=== PATIENT | male | born 1960 | race Caucasian/White ===

== ENCOUNTER 2018-12-17 12:19 | Inpatient (IN) | payer MEDICAID ==
[2018-12-17] MEDS ORDERED: Lactated Ringer 1,000 ML IV ONE (12:59)
[2018-12-17 13:20] LABS: % BASOPHILS 0.3 % (0.0-2.0); % EOSINOPHILS 1.3 % (0.0-5.0); % LYMPHOCYTES 15.6 % (20.0-50.0); % MONOCYTES 3.6 % (2.0-10.0); % NEUTROPHILS 79.2 % (40.0-80.0); EOSINOPHILE ABSOLUTE 0.1 Th/cmm (0.1-0.4); HEMATOCRIT 45.2 % (41.0-60); HEMOGLOBIN 15.4 gm/dL (12-16); LYMPHOCYTE ABSOLUTE 1.5 Th/cmm (1.5-3.0); MEAN CORPUSCULAR HEMOGLOBIN 29.7 pg (26.0-30.0); MEAN CORPUSCULAR HGB CONC 34.2 pg (28.0-36.0); MEAN PLATELET VOLUME 9.4 fl; MONOCYTE ABSOLUTE 0.3 Th/cmm (0.3-1.0); NEUTROPHILE ABSOLUTE 7.6 Th/cmm (1.8-8.0); PLATELET COUNT 197 Th/cmm (150-400); RED BLOOD COUNT 5.19 Mil/cmm (4.30-5.70); RED CELL DISTRIBUTION WIDTH 13.2 % (11.5-20.0); WHITE BLOOD COUNT 9.5 Th/cmm (4.8-10.8)
[2018-12-17 13:34] LABS: ALB/GLOB RATIO 1.2 (1.0-1.8); ALBUMIN 3.9 gm/dL (4.2-5.5); ALKALINE PHOSPHATASE 73 U/L (34-104); ANION GAP 12.3 (7.0-16.0); BILIRUBIN,TOTAL 0.5 mg/dL (0.3-1.0); BUN - UREA NITROGEN 13 mg/dL (7-25); CALCIUM SERUM 9.3 mg/dL (8.6-10.3); CARBON DIOXIDE 23.5 mEq/L (21.0-31.0); CHLORIDE 105 mEq/L (98-107); GFR AFRICAN-AMERICAN > 60.0 ml/min (>90); GFR NON AFRICAN-AMERICAN > 60.0 ml/min; GLUCOSE 151 mg/dL (70-105); MAGNESIUM 2.1 mg/dL (1.9-2.7); POTASSIUM SERUM 3.8 mEq/L (3.5-5.1); SGOT 17 U/L (13-39); SGPT/ALT 27 U/L (7-52); SODIUM SERUM 137 mEq/L (136-145); TOTAL PROTEIN,SERUM 7.2 gm/dL (6.0-8.3)
[2018-12-17 13:54] LABS: DDIMER QUANT 187 ng/mL (100-400)
[2018-12-17] MEDS ORDERED: Sodium Phos / Potassium Phos 1.25 GM PACK PO ONE (13:54)
--- NOTE | 2018-12-17 14:13 | ED Physician Chart ---
ED Chief Complaint/HPI - Patient Information Date Seen:: 12/17/18 Time Seen:: 12:27 Chief Complaint:: LLE pain History of Present Illness:: LLE pain without h/o trauma. Being treated for a pneumonia right now on levaquin. Allergies:: Allergies Allergy/AdvReac Type Severity Reaction Status Date / Time No Known Allergies Allergy Verified 12/17/18 12:26 Vitals:: Vital Signs - 8 hr 12/17/18 12:27 Temp 98.0 F HR 87 RR 21 BP 156/90 O2 Sat % 97 Historian:: Patient, Friend Review:: Nurse's Note Reviewed ED Review of Systems - Review of Systems General/Constitutional: No fever, No chills, No weight loss, No weakness, No diaphoresis, No edema, No loss of appetite Skin: No skin lesions, No rash, No bruising, Other (red and warm LLE) Head: No headache, No light-headedness Eyes: No loss of vision, No pain, No diplopia ENT: No earache, No nasal drainage, No sore throat, No tinnitus Neck: No neck pain, No swelling, No thyromegaly, No stiffness, No mass noted Cardio Vascular: No chest pain, No palpitations, No PND, No orthopnea, No edema Pulmonary: No SOB, No cough, No sputum, No wheezing GI: No nausea, No vomiting, No diarrhea, No pain, No melena, No hematochezia, No constipation, No hematemesis G/U: No dysuria, No frequency, No hematuria Musculoskeletal: No bone or joint pain, No back pain, No muscle pain, Other ( negative Jenn's) Endocrine: No polyuria, No polydipsia Psychiatric: No prior psych history, No depression, No anxiety, No suicidal ideation Hematopoietic: No bruising, No lymphadenopathy Allergic/Immuno: No urticaria, No angioedema Neurological: No syncope, No focal symptoms, No weakness, No paresthesia, No headache, No seizure, No dizziness, No confusion, No vertigo ED Past Medical History - Past Medical History Obtainable: Yes Past Medical History: Other (pre-diabetes; on Levaquin for pneumonia) Family Medical History - Family Member Mother History Unknown: Yes ED Physical Exam - Physical Examination General/Constitutional: Awake, Alert, No distress, GCS 15, Non-toxic appearing, Ambulatory Other Gen/Cons comments:: overweight Head: Atraumatic Eyes: Lids, conjuctiva normal, PERRL Other Skin comments:: dry oral mucosa red, hot and warm LLE in the left pretibial region consistent with cellulitis. NV intact. Negative Jenn's sign. Negative for compartment syndrome. ENMT: External ears, nose nl Neck: Nontender, No nuchal rigidity, No stridor Respiratory: Nl effort/Exclusion, Clear to Auscultation, No Wheeze/Rhonchi/Rales Cardio Vascular: RRR, No murmur, gallop, rubs, NL S1 S2 GI: No tenderness/rebounding/guarding, No organomegaly, No hernia, Normal BS's, Nondistended, No mass/bruits, No McBurney tenderness : No CVA tenderness Extremities: No tenderness or effusion, Full ROM, No edema, Normal digits & nails Neuro/Psych: Alert/oriented, DTR's symmetric, Normal sensory exam, Normal motor strength, Judgement/insight normal, Mood normal, Normal gait, No focal deficits Misc: Normal back, No paraspinal tenderness ED Labs/Radiology/EKG Results - Lab Results Results: Laboratory Tests 12/17/18 12/17/18 12/17/18 12:57 13:05 13:05 WBC 9.5 RBC 5.19 Hgb 15.4 Hct 45.2 MCV 87.0 MCH 29.7 MCHC Differential 34.2 RDW 13.2 Plt Count 197 MPV 9.4 Neutrophils % 79.2 Lymphocytes % 15.6 L Monocytes % 3.6 Eosinophils % 1.3 Basophils % 0.3 D-Dimer 187 Sodium 137 Potassium 3.8 Chloride 105 Carbon Dioxide 23.5 Anion Gap 12.3 BUN 13 Creatinine 1.0 Est GFR ( Amer) > 60.0 Est GFR (Non-Af Amer) > 60.0 BUN/Creatinine Ratio 13.0 Glucose 151 H POC Glucose 151 H Whole Bld Lactic Acid Calcium 9.3 Phosphorus 2.0 L Magnesium 2.1 Total Bilirubin 0.5 AST 17 ALT 27 Alkaline Phosphatase 73 Total Protein 7.2 Albumin 3.9 L Globulin 3.3 Albumin/Globulin Ratio 1.2 12/17/18 13:05 WBC RBC Hgb Hct MCV MCH MCHC Differential RDW Plt Count MPV Neutrophils % Lymphocytes % Monocytes % Eosinophils % Basophils % D-Dimer Sodium Potassium Chloride Carbon Dioxide Anion Gap BUN Creatinine Est GFR ( Amer) Est GFR (Non-Af Amer) BUN/Creatinine Ratio Glucose POC Glucose Whole Bld Lactic Acid 0.92 Calcium Phosphorus Magnesium Total Bilirubin AST ALT Alkaline Phosphatase Total Protein Albumin Globulin Albumin/Globulin Ratio ED Assessment - Assessment General Assessment: presented case to Dr. Avila at 14:12 p.m. Patient will be admitted to a med/surg bed. ED Septic Shock - . Is Septic Shock (SBP<90, OR Lactate>4 mmol\L) present?: No - <6hrs of presentation: Vital Signs: Vital Signs - 8 hr 12/17/18 12:27 Temp 98.0 F HR 87 RR 21 BP 156/90 O2 Sat % 97 ED Reassessment (Disposition) - Reassessment Reassessment Condition:: Unchanged - Diagnosis Diagnosis:: LLE Cellulitis Prediabetes. Low phosphorous. - Patient Disposition Discharge/Transfer:: Acute Care w/in this hosp Admitted to:: Med/Surg Condition at Disposition:: Stable, Unchanged
[2018-12-17] MEDS ORDERED: Pneumococcal Vaccine 0.5 mL Vial IM ONE (16:14)
[2018-12-17] MEDS ORDERED: Hydrocodone/APAP 5mg/325mg Tab PO PRN (16:21)
[2018-12-17 16:48] LABS: URINE SOURCE CLEAN C
[2018-12-17 16:50] LABS: URINE BILIRUBIN NEGATIVE (NEGATIVE); URINE BLOOD TRACE (NEGATIVE); URINE GLUCOSE (UA) NEGATIVE (NEGATIVE); URINE KETONE NEGATIVE (NEGATIVE); URINE LEUKOCYTE ESTERASE NEGATIVE (NEGATIVE); URINE MICROSCOPIC INDICATED? YES; URINE NITRATE POSITIVE (NEGATIVE); URINE PROTEIN TRACE mg/dL (NEGATIVE); URINE UROBILINOGEN 0.2 E.U./dL (0.2 - 1.0)
[2018-12-17] MEDS ORDERED: Vancomycin HCl 1.75 GM in Sodium Chloride 0.9% 500 ML IV ONE ×2 (17:00→21:00)
[2018-12-17 17:02] LABS: URINE CLARITY HAZY (CLEAR); URINE COLOR YELLOW
[2018-12-17 17:03] LABS: URINE BACTERIA FEW /hpf (NONE SEEN); URINE EPITHELIAL CELLS NONE SEEN /lpf (FEW); URINE RBC 0-2 /hpf (0-5)
[2018-12-17] MEDS: Enoxaparin 40 mg/0.4 mL 0.4mL Syr SUBQ SCH (17:21)
[2018-12-17] MEDS ORDERED: Sodium Phos / Potassium Phos 1.25 GM PACK ONE (17:28)
[2018-12-17] MEDS: INSULIN ASPART SLIDING SCALE 100 UNITS/ML UNIT SUBQ SCH ×2 (17:29→21:11)
--- NOTE | 2018-12-17 20:59 | History & Physical ---
ADMIT DATE: 12/17/2018 CHIEF COMPLAINT: Redness, tenderness, swelling of the left lower extremity for a few days' duration. HISTORY OF PRESENT ILLNESS: The patient is a 58-year-old male with long history of diabetes mellitus, presented to the Emergency Room with pain, tenderness, redness of left lower extremity for a few days' duration. Initial workup significant for cellulitis of left lower extremity. No fever, no chills, no nausea, no vomiting. The patient admitted to medical floor, started on antibiotic, CCHO diet, sliding scale with regular insulin coverage. Lovenox 40 subq for DVT prophylaxis. PAST MEDICAL HISTORY: Diabetes mellitus. PAST SURGICAL HISTORY: No recent surgery. ALLERGIES: None. MEDICATIONS: Follow admission reconciliation. SOCIAL HISTORY: No smoking, no alcohol, no drugs. FAMILY HISTORY: Noncontributory. REVIEW OF SYSTEMS: RENAL SYSTEM: No history of chronic renal disorder. CARDIOVASCULAR SYSTEM: No coronary artery disease. ENDOCRINE SYSTEM: He has history of diabetes mellitus. GASTROINTESTINAL SYSTEM: No upper or lower gastrointestinal bleed. NEUROLOGICAL SYSTEM: Seizure disorder. SKELETOMUSCULAR SYSTEM: No muscular dystrophy. HEMATOLOGICAL SYSTEM: No bleeding tendency. RESPIRATORY SYSTEM: No asthma. GENITOURINARY: No dysuria or hematuria. PHYSICAL EXAMINATION: GENERAL: He is awake, alert, oriented. VITAL SIGNS: Temperature 98, heart rate 88, blood pressure 132/70. HEENT: Normocephalic. Pupils reacting to light and accommodation. Sclerae clear. NECK: Supple. Negative for lymphadenopathy, JVD or bruit. CHEST: Entry of air bilaterally normal. No rhonchi or wheezing. HEART: S1, S2 normal. No murmur or gallop rhythm. ABDOMEN: Soft, bowel sounds positive. EXTREMITIES: Significant for redness, tenderness of the left lower extremity. NEUROLOGIC: Awake, alert, oriented. No focal motor deficit. Cranial nerves 2-12 is intact. LABORATORY DATA: White blood cell 9.5, hemoglobin 15.4, hematocrit 45.2, platelets 197. Sodium 137, potassium 3.8, BUN 13, creatinine 1.0, glucose 151. ASSESSMENT: 1. Cellulitis of left lower extremity. 2. Diabetes mellitus. 3. Hypertension. 4. Obesity. PLAN: The patient admitted to the hospital under Dr. Avila's service. Start him on IV antibiotic, CCHO diet, sliding scale with regular insulin coverage, metformin 850 twice a day, aspirin 81 once a day, Lovenox 40 subq daily, vancomycin 1 gram IV, pharmacy to follow, lisinopril 10 mg once a day. The patient is a full code. A1c hemoglobin ordered for tomorrow. JOB# [id number]
[2018-12-18] MEDS ORDERED: Vancomycin HCl 1.75 GM in Sodium Chloride 0.9% 500 ML IV ONE
[2018-12-18] MEDS: INSULIN ASPART SLIDING SCALE 100 UNITS/ML UNIT SUBQ SCH ×4 (06:51→20:41)
[2018-12-18 06:58] LABS: ANION GAP 13.5 (7.0-16.0); BUN - UREA NITROGEN 12 mg/dL (7-25); CALCIUM SERUM 9.2 mg/dL (8.6-10.3); CARBON DIOXIDE 23.2 mEq/L (21.0-31.0); CHLORIDE 107 mEq/L (98-107); CREATININE - SERUM 0.9 mg/dL (0.7-1.3); GFR AFRICAN-AMERICAN > 60.0 ml/min (>90); GFR NON AFRICAN-AMERICAN > 60.0 ml/min; GLUCOSE 109 mg/dL (70-105); POTASSIUM SERUM 3.7 mEq/L (3.5-5.1); SODIUM SERUM 140 mEq/L (136-145)
--- NOTE | 2018-12-18 07:46 | Diagnostic Imaging Report ---
Portable chest x-ray Time: 1310 History: Pneumonia Allowing for portable technique the heart size is prominent. No focal pulmonary parenchymal processes. No hilar or mediastinal abnormalities. Impression: No acute abnormalities.
--- NOTE | 2018-12-18 07:57 | Diagnostic Imaging Report ---
Exam: Ultrasound examination of the venous circulation left lower extremity. HISTORY: Cellulitis. Findings: Real-time ultrasound examination of the deep venous circulation left lower extremity was performed multiple planes utilizing color Doppler technique. The study demonstrates normal compressibility and augmentation of deep venous system throughout. IMPRESSION: No evidence for deep venous thrombosis left lower extremity.
[2018-12-18] MEDS: Vancomycin HCl 1.5 GM in Sodium Chloride 0.9% 500 ML IV SCH ×3 (08:58→23:56)
[2018-12-18] MEDS: Aspirin 81mg Chewable Tab PO SCH (08:59)
[2018-12-18] MEDS: Enoxaparin 40 mg/0.4 mL 0.4mL Syr SUBQ SCH (09:00)
[2018-12-18] MEDS ORDERED: Vancomycin HCl 1.75 GM in Sodium Chloride 0.9% 500 ML IV SCH (09:00)
--- NOTE | 2018-12-18 17:39 | Internal Medicine Prog Note ---
Internal Medicine Subjective - Subjective Service Date: 12/18/18 Patient seen and examined:: without staff Patient is:: awake, in bed, talking Per staff patient has:: no adverse event Internal Medicine Objective - Results Result Diagrams: 12/17/18 13:05 12/18/18 05:00 Recent Labs: Laboratory Last Values WBC 9.5 Th/cmm (4.8-10.8) 12/17/18 13:05 RBC 5.19 Mil/cmm (4.30-5.70) 12/17/18 13:05 Hgb 15.4 gm/dL (12-16) 12/17/18 13:05 Hct 45.2 % (41.0-60) 12/17/18 13:05 MCV 87.0 fl (80-99) 12/17/18 13:05 MCH 29.7 pg (26.0-30.0) 12/17/18 13:05 MCHC Differential 34.2 pg (28.0-36.0) 12/17/18 13:05 RDW 13.2 % (11.5-20.0) 12/17/18 13:05 Plt Count 197 Th/cmm (150-400) 12/17/18 13:05 MPV 9.4 fl 12/17/18 13:05 Neutrophils % 79.2 % (40.0-80.0) 12/17/18 13:05 Lymphocytes % 15.6 % (20.0-50.0) L 12/17/18 13:05 Monocytes % 3.6 % (2.0-10.0) 12/17/18 13:05 Eosinophils % 1.3 % (0.0-5.0) 12/17/18 13:05 Basophils % 0.3 % (0.0-2.0) 12/17/18 13:05 D-Dimer 187 ng/mL (100-400) 12/17/18 13:05 Sodium 140 mEq/L (136-145) 12/18/18 05:00 Potassium 3.7 mEq/L (3.5-5.1) 12/18/18 05:00 Chloride 107 mEq/L (98-107) 12/18/18 05:00 Carbon Dioxide 23.2 mEq/L (21.0-31.0) 12/18/18 05:00 Anion Gap 13.5 (7.0-16.0) 12/18/18 05:00 BUN 12 mg/dL (7-25) 12/18/18 05:00 Creatinine 0.9 mg/dL (0.7-1.3) 12/18/18 05:00 Est GFR ( Amer) > 60.0 ml/min (>90) 12/18/18 05:00 Est GFR (Non-Af Amer) > 60.0 ml/min 12/18/18 05:00 BUN/Creatinine Ratio 13.3 12/18/18 05:00 Glucose 109 mg/dL (70-105) H 12/18/18 05:00 POC Glucose 147 MG/DL (70 - 105) H 12/18/18 16:53 Whole Bld Lactic Acid 0.92 mmol/L (0.60-1.99) 12/17/18 13:05 Calcium 9.2 mg/dL (8.6-10.3) 12/18/18 05:00 Phosphorus 2.0 mg/dL (2.5-5.0) L 12/17/18 13:05 Magnesium 2.1 mg/dL (1.9-2.7) 12/17/18 13:05 Total Bilirubin 0.5 mg/dL (0.3-1.0) 12/17/18 13:05 AST 17 U/L (13-39) 12/17/18 13:05 ALT 27 U/L (7-52) 12/17/18 13:05 Alkaline Phosphatase 73 U/L (34-104) 12/17/18 13:05 Total Protein 7.2 gm/dL (6.0-8.3) 12/17/18 13:05 Albumin 3.9 gm/dL (4.2-5.5) L 12/17/18 13:05 Globulin 3.3 gm/dL 12/17/18 13:05 Albumin/Globulin Ratio 1.2 (1.0-1.8) 12/17/18 13:05 Urine Source CLEAN C 12/17/18 14:30 Urine Color YELLOW 12/17/18 14:30 Urine Clarity HAZY (CLEAR) 12/17/18 14:30 Urine pH 6.0 (4.6 - 8.0) 12/17/18 14:30 Ur Specific [place] 1.025 (1.005-1.030) 12/17/18 14:30 Urine Protein TRACE mg/dL (NEGATIVE) 12/17/18 14:30 Urine Glucose (UA) NEGATIVE mg/dL (NEGATIVE) 12/17/18 14:30 Urine Ketones NEGATIVE mg/dL (NEGATIVE) 12/17/18 14:30 Urine Blood TRACE (NEGATIVE) 12/17/18 14:30 Urine Nitrate POSITIVE (NEGATIVE) H 12/17/18 14:30 Urine Bilirubin NEGATIVE (NEGATIVE) 12/17/18 14:30 Urine Urobilinogen 0.2 E.U./dL (0.2 - 1.0) 12/17/18 14:30 Ur Leukocyte Esterase NEGATIVE (NEGATIVE) 12/17/18 14:30 Urine RBC 0-2 /hpf (0-5) H 12/17/18 14:30 Urine WBC 6-10 /hpf (0-5) 12/17/18 14:30 Ur Epithelial Cells NONE SEEN /lpf (FEW) 12/17/18 14:30 Urine Bacteria FEW /hpf (NONE SEEN) 12/17/18 14:30 Vancomycin Trough 17.6 ug/mL (5-10) H 12/18/18 15:05 - Physical Exam Vitals and I&O: Vital Signs Temp 97.6 F 12/18/18 16:36 Pulse 75 12/18/18 16:43 Resp 18 12/18/18 16:36 BP 161/99 12/18/18 16:43 Pulse Ox 99 12/18/18 16:36 Intake & Output 12/17/18 12/18/18 12/18/18 18:59 06:59 18:59 Intake Total 500 900 500 Balance 500 900 500 Weight (lbs) 122.47 kg 122.47 kg Intake: Intake, IV Amount 500 Vancomycin HCl 1.5 gm In 500 Sodium Chloride 0.9% 500 ml @ 250 mls/hr IV Q8H [facility] Rx#:[id number] Oral 500 900 Other: # Voids 1 4 # Bowel Movements 0 Weight Source Bedscale Bedscale Active Medications: Current Medications Acetaminophen (Tylenol) 650 mg PO Q6H PRN PRN Reason: Pain or Fever >101 Stop: 02/15/19 14:29 Last Admin: 12/18/18 05:41 Dose: 650 mg Acetaminophen/Hydrocodone Bitart ([place] 5mg/325mg) 1 tab PO Q6H PRN PRN Reason: LEFT LOWER EXTREMITY PAIN Stop: 02/15/19 16:20 Amlodipine Besylate (Norvasc) 10 mg PO DAILY [facility] Stop: 02/17/19 16:13 Aspirin (Aspirin Chewable) 81 mg PO DAILY [facility] Stop: 02/16/19 08:59 Last Admin: 12/18/18 08:59 Dose: 81 mg Enoxaparin Sodium (Lovenox) 40 mg SUBQ DAILY [facility] Stop: 02/15/19 16:29 Last Admin: 12/18/18 09:00 Dose: 40 mg Vancomycin HCl 1.5 gm/ Sodium (Chloride) 500 mls @ 250 mls/hr IV Q8H [facility] Stop: 02/16/19 07:59 Last Admin: 12/18/18 16:42 Dose: 250 mls/hr Insulin Aspart (Novolog Insulin Sliding Scale) 0 units SUBQ ACHS [facility]; Protocol Stop: 02/15/19 16:29 Last Admin: 12/18/18 16:54 Dose: Not Given Lisinopril (Zestril) 20 mg PO BID [facility] Stop: 02/16/19 16:59 Last Admin: 12/18/18 16:43 Dose: 20 mg Metformin HCl (Glucophage) 850 mg PO BIDWM [facility] Stop: 02/16/19 07:59 Last Admin: 12/18/18 08:59 Dose: 850 mg Miscellaneous (Vancomycin Iv Per Pharmacy) 1 ea [facility] PRN PRN PRN Reason: PROTOCOL Stop: 02/15/19 14:20 Pneumococcal Polyvalent Vaccine (Pneumovax) 0.5 ml IM .ONCE ONE Stop: 12/17/18 16:15 General: alert HEENT: NC/AT, PERRLA, EOMI, anicteric sclerae, throat clear Neck: Supple, No JVD, No thyromegaly, +2 carotid pulse wo bruit Lungs: CTAB Cardiovascular: RRR, Normal S1, Normal S2, without murmur Abdomen: soft, non-tender, non-distended Extremities: other (LESS REDNESS OF LEFT LOWER EXTREMETY.) Neurological: no change Internal Medicine Assmt/Plan - Assessment Assessment: 1.CELLULITIS OF LEFT LOWER EXTREMITY. 2.DM. 3.HTN. 4.OBESITY. - Plan Plan: CONTINUE ON CURRENT MEDICATION AND DIET.
[2018-12-19 06:48] LABS: % BASOPHILS 0.6 % (0.0-2.0); % EOSINOPHILS 3.3 % (0.0-5.0); % LYMPHOCYTES 17.2 % (20.0-50.0); % MONOCYTES 5.4 % (2.0-10.0); % NEUTROPHILS 73.5 % (40.0-80.0); BASOPHILE ABSOLUTE 0.1 Th/cumm (0-0.2); EOSINOPHILE ABSOLUTE 0.4 Th/cmm (0.1-0.4); HEMATOCRIT 44.2 % (41.0-60); HEMOGLOBIN 15.2 gm/dL (12-16); LYMPHOCYTE ABSOLUTE 2.1 Th/cmm (1.5-3.0); MEAN CELL VOLUME 86.9 fl (80-99); MEAN CORPUSCULAR HEMOGLOBIN 29.8 pg (26.0-30.0); MEAN CORPUSCULAR HGB CONC 34.2 pg (28.0-36.0); MEAN PLATELET VOLUME 9.1 fl; MONOCYTE ABSOLUTE 0.7 Th/cmm (0.3-1.0); NEUTROPHILE ABSOLUTE 8.8 Th/cmm (1.8-8.0); PLATELET COUNT 249 Th/cmm (150-400); RED BLOOD COUNT 5.09 Mil/cmm (4.30-5.70); RED CELL DISTRIBUTION WIDTH 12.8 % (11.5-20.0); WHITE BLOOD COUNT 12.1 Th/cmm (4.8-10.8)
[2018-12-19] MEDS: INSULIN ASPART SLIDING SCALE 100 UNITS/ML UNIT SUBQ SCH ×3 (06:56→17:16)
[2018-12-19 06:59] LABS: ALB/GLOB RATIO 1.2 (1.0-1.8); ALBUMIN 3.9 gm/dL (4.2-5.5); ALKALINE PHOSPHATASE 85 U/L (34-104); ANION GAP 13.1 (7.0-16.0); BILIRUBIN,TOTAL 0.5 mg/dL (0.3-1.0); BUN - UREA NITROGEN 14 mg/dL (7-25); CALCIUM SERUM 9.7 mg/dL (8.6-10.3); CARBON DIOXIDE 26.2 mEq/L (21.0-31.0); CHLORIDE 106 mEq/L (98-107); GFR AFRICAN-AMERICAN > 60.0 ml/min (>90); GFR NON AFRICAN-AMERICAN > 60.0 ml/min; GLUCOSE 131 mg/dL (70-105); POTASSIUM SERUM 4.3 mEq/L (3.5-5.1); SGOT 22 U/L (13-39); SGPT/ALT 29 U/L (7-52); SODIUM SERUM 141 mEq/L (136-145); TOTAL PROTEIN,SERUM 7.3 gm/dL (6.0-8.3)
[2018-12-19] MEDS: Enoxaparin 40 mg/0.4 mL 0.4mL Syr SUBQ SCH (08:48)
[2018-12-19] MEDS: Aspirin 81mg Chewable Tab PO SCH (08:49)
[2018-12-19] MEDS: Vancomycin HCl 1.5 GM in Sodium Chloride 0.9% 500 ML IV SCH ×2 (10:08→16:00)
--- NOTE | 2018-12-20 03:28 | Discharge Summary ---
DATE OF DISCHARGE: 12/19/2018 FINAL DIAGNOSES: 1. Cellulitis of the left lower extremity. 2. Diabetes mellitus. 3. Hypertension. 4. Obesity. REVIEW OF HISTORY: The patient is a 58-year-old male with long history of diabetes mellitus, hypertension, obesity, presented to the Emergency Room with redness, tenderness of the left lower extremity for a few days' duration, evaluated by the ER physician. Initial workup significant for cellulitis of left lower extremity. The patient admitted to the hospital, started on antibiotic, CCHO diet, sliding scale with regular insulin coverage. PHYSICAL EXAMINATION: VITAL SIGNS: Temperature 98, heart rate 88, blood pressure 132/70. CHEST: Clear to auscultation. ABDOMEN: Soft, bowel sounds positive. EXTREMITIES: Significant for redness of the left lower extremity. LABORATORY DATA: White blood cell 9.5, hemoglobin 15.4. Sodium 137, potassium 3.8, BUN 13, creatinine 1.0. Glucose 151. COURSE OF HOSPITALIZATION: During hospitalization, the patient improved clinically. On the 12/18/2018, the patient was feeling better, less pain, no fever, no chills. Examination of the left lower extremity significant for less redness, less tenderness. DISPOSITION: On the 12/19/2018, the patient was feeling well. No fever, no chills. Examination of the left lower extremity significant for improvement of the redness, no tenderness. The patient is going to be discharged home to be followed up with primary physician as outpatient. CONDITION ON DISCHARGE: Stable. MEDICATIONS: Follow discharge reconciliation. DIET: 1800 kilocalories diet. [facility]# [id number]
== END 2018-12-19 21:05 | disposition home or self-care (01) | DRG 383 ==
LOC: ER 12:19 → MSI 14:29
PROVIDERS: ADMIT Family Medicine; ATTEND Family Medicine
DX: L03.116 Cellulitis of left lower limb (principal); E11.9 Type 2 diabetes mellitus without complications; I10 Essential (primary) hypertension; E66.9 Obesity, unspecified; Z68.37 Body mass index [BMI] 37.0-37.9, adult
CPT/HCPCS: 36415-UA; 71045-TC; 80048-TC; 80053-TC; 80202-TC; 81001-TC; 82948-90; 83036-90; 83605; 83735-TC; 84100-TC; 85025-TC; 85379-TC; 87086-90; 93971-TC-LT; J1650; J1815; J3370; J7040; Z7610